=== PATIENT | female | born 1985 ===

== ENCOUNTER → 2023-06-14 07:16 | Outpatient (CLI) | payer OTHER, SELFPAY ==
--- NOTE | 2023-06-14 12:50 | DI.RAD_ITS ---
Exam(s) XR FOOT LT COMPLETE EXAM: XR FOOT LT COMPLETE CLINICAL HISTORY: Lt heel pain,foot pain, [id number]. TECHNIQUE: 2D digital imaging was performed. Three views. COMPARISON: No exams were available for comparison FINDINGS: BONES: No acute fracture is present. No bony destructive lesion is seen. Tiny heel spur. JOINTS: No dislocation present. Plantar arch is maintained. SOFT TISSUE: Normal. IMPRESSION: Tiny heel spur. DATA REPOSITORY: RADIATION DOSE DELIVERED:
== END ==
PROVIDERS: PCP Family Medicine; Visit Provider Podiatrist
DX: M79.672 Pain in left foot (principal)
CPT/HCPCS: 73630